=== PATIENT | female | born 1955 | race Caucasian/White ===

== ENCOUNTER 2025-06-02 09:40 | Day surgery (SDC) | payer OTHER, SELFPAY ==
--- NOTE | 2025-05-31 10:48 | EKG_ITS ---
[facility] Test Date: 2025-05-31 Pat Name: GLADYS CHAPPELL Department: Room: - Gender: Female [employer] Work[employer]: ANAYV2 : 1955 Requested By: Sahnti Jennings Order Number: [id number] Reading MD: Shanti Jennings Measurements Intervals [place] Rate: 54 P: 32 MT: 171 QRS: 32 QRSD: 75 T: 31 QT: 410 QTc: 390 Interpretive Statements SINUS BRADYCARDIA WARNING: DATA QUALITY MAY AFFECT INTERPRETATION No previous ECG available for comparison /[email or web address]/[id number]
[2025-05-31 10:59] VITALS: BMI 30.3
[2025-05-31 13:31] LABS: Collection Type, Urine Clean Catch; RBC,Urine 0 /hpf (0-3)
[2025-05-31 13:47] LABS: Basophils # (Auto) 0.1 Thou/mm3 (0.0-0.2); Basophils % (Auto) 1 % (0-2.5); Eosinophils # (Auto) 0.1 Thou/mm3 (0.0-0.5); Eosinophils % (Auto) 2 % (0-10); Hematocrit 38.9 % (36.0-46.0); Hemoglobin 13.2 g/dL (12.0-16.0); Immature Granulocytes Auto 0.02 Thou/mm3 (0.00-0.00); Lymphocytes # (Auto) 2.7 Thou/mm3 (1.0-4.8); Lymphocytes % (Auto) 33 % (10-50); Mean Corpuscular HGB Conc 33.9 g/dl (31.0-37.0); Mean Corpuscular Hemoglobin 30.8 pg (25.0-35.0); Mean Corpuscular Volume 91 fL (80-100); Monocytes # (Auto) 0.5 Thou/mm3 (0.0-0.8); Monocytes % (Auto) 6 % (0-12); Neutrophils # (Auto) 4.7 Thou/mm3 (1.8-7.7); Neutrophils % (Auto) 58 % (37-80); Nucleated Red Blood Cell # 0.00 Thou/mm3 (0.00-0.00); Nucleated Red Blood Cell % 0 /100 WBC (0); Platelet Count 364 Thou/mm3 (140-440); RDW Standard Deviation 45.4 fL (36.4-46.3); Red Blood Count 4.29 Miln/mm3 (4.00-5.20); White Blood Count 8.1 Thou/mm3 (3.6-11.0)
[2025-05-31 13:56] LABS: Alanine Aminotransferase 23 U/L (10-49); Albumin, Serum 4.2 gm/dL (3.4-4.8); Albumin/Globulin Ratio 1.7 (1.2-2.2); Alkaline Phosphatase 114 U/L (46-116); Anion Gap 6 (7-16); Aspartate Amino Transferase 19 U/L (0-34); BUN/Creatinine Ratio 17 Ratio (12-20); Bilirubin,Total 0.9 mg/dL (0.3-1.2); Blood Urea Nitrogen 17 mg/dL (9-23); Calcium 9.1 mg/dL (8.3-10.6); Calcium (Corrected) 9.1 mg/dL (8.5-10.1); Carbon Dioxide 30.1 mMol/L (20.0-31.0); Chloride 110 mMol/L (98-107); Creatinine (Component) 1.0 mg/dL (0.6-1.3); Estimated Creatinine Clearance 49.0 mL/min (>60); Globulin 2.5 gm/dL (2.3-3.5); Glucose 102 mg/dL (74-106); Osmolality,Calculated 292 (275-295); Potassium 5.0 mMol/L (3.4-5.1); Sodium 146 mMol/L (136-145); Total Protein 6.7 gm/dL (5.7-8.2); eGFR > 60 See Note
[2025-05-31 14:39] LABS: Amorphous Crystals,Urine Present (Absent); Bacteria,Urine 3+; Bilirubin,Urine Negative (Negative); Blood,Urine Negative (Negative); Clarity,Urine Turbid (Clear/Hazy); Color,Urine Yellow (Lt Yel-Yel); Glucose, Urine Negative (Negative); Ketones,Urine Negative (Negative); Leukocyte Esterase,Urine Positive (Negative); Nitrite,Urine Negative (Negative); PH,Urine 6.5 (5.0-7.0); Protein,Urine Trace (Neg - Trace); Specific Gravity,Urine 1.028 (1.001-1.035); Squamous Epithelial Cell,Urine 2 /hpf (0-5); Urobilinogen,Urine Negative mg/dL (0.0-1.0); WBC,Urine 2 /hpf (0-5)
[2025-06-02] VITALS (7 sets, daily range): BP systolic 156–172; BP diastolic 68–91; PULSE 57–70; RESP 12–19; TEMP 36.1–36.4; O2SAT 97–100; BMI 29.4
--- NOTE | 2025-06-02 10:30 | SUR.PREOP ---
Patient expressed gratitude for prayer before their procedure.
--- NOTE | 2025-06-02 13:12 | SUR.PHASEI ---
pt arrived to PACU via gurney, breathing unlabored, peripad in place-clean and dry, VS stable, report from Chris LUCIANO, Ramon DORADO, and Severino BARRY
--- NOTE | 2025-06-02 13:30 | SUR.PHASEI ---
pt tolerating oral fluids without difficulty swallowing or n/v
--- NOTE | 2025-06-02 13:42 | ESOP_ITS ---
Operative Note - [employer] Procedure Date of procedure: 06/02/25 Procedure Performed: hysteroscopy and dilation and curettage for endometrial polyps Indication: postmenopausal bleeding / cervical stenosis Pre-Op diagnosis: same , see indication Post-Op diagnosis: same Anesthesia type: General Procedure description: After an informed consent patient taken to the operating room was placed in dorsal lithotomy position after receiving general anesthesia. Had a red Devyn catheter to drain her bladder was prepped and draped in the usual sterile fashion A timeout was done and SSI prophylaxis given Pelvic exam shows a uterus which is retroflexed A speculum was placed posteriorly and another Simpsons speculum placed superiorly and cervix exposed Anterior lip of cervix held with single-tooth tenaculum Uterine dilators used to dilate the cervix Then 8 mm hysteroscope primed with normal saline introduced into the uterine cavity multiple uterine endometrial polyps are seen and shaggy and cobwebby endometrium Then with the MyoSure the polyps are removed and the curettage from the endometrium is taken as well Then procedure is completed after also taking Endocervical specimen , scanty Patient tolerated procedure well deficit is 50 cc and counts are correct Estimated blood loss (ml): 10 Findings: uterus Retroflexd and Uterocervical length is 6 cm cervical os tight but could be dilated ostia were hard to visualise Complications: none Narrative: see procedure details Surgical staff Operation Date: 06/02/25 12:45 <No data on this case meets the specified criteria> Diagnosis Discharge Diagnosis (1) Postmenopausal bleeding: Status: Acute Problem details: s/p hysteroscopy and D&C and removal of endometrial polyps (2) Endometrial polyp: Status: Acute Problem details: s/ p hysteroscopy and D&C and removal of endometrial polyps Problem List Completed Was Problem List Reviewed/Reconciled?: Yes
--- NOTE | 2025-06-02 14:18 | SUR.PHASEII ---
pt awake, alert, able to follow commands, breathing unlabored, peripad in place-clean and dry, discharge instructions given with spouse William present, all questions answered, pt and spouse verbalize understanding of discharge instructions, pt able to dress self and ambulate to wheelchair with steady gait, pt discharged via wheelchair with all belongings and copies of discharge paperwork.
== END 2025-06-02 14:18 | disposition home or self-care (01) ==
PROVIDERS: Anesthesiology; PCP Family Medicine; Referring Provider Obstetrics & Gynecology; Visit Provider Obstetrics & Gynecology
PROC: 0U5B8ZZ Destruction of Endometrium, Via Natural or Artificial Opening Endoscopic (ICD-10-PCS; CPT 58563; principal; 2025-06-02 12:30)
DX: N84.0 Polyp of corpus uteri (principal); N88.2 Stricture and stenosis of cervix uteri; Z01.810 Encounter for preprocedural cardiovascular examination
CPT/HCPCS: 58558; 36415; 80053; 81001; 85025; 93005; A4217; A4649; J0690; J1100; J2250; J2405; J2704; J3010; J3490; J1596